=== PATIENT | female | born 1960 | race Caucasian/White ===

== ENCOUNTER → 2024-05-17 | Outpatient (CLI) | payer BC ==
[2024-05-17 17:32] LABS: BASOPHIL % 0.9 % (0.1-1.2); EOSINOPHIL # 0.1 10^3/uL (0.0-0.2); EOSINOPHIL % 1.5 % (0.0-5.0); HEMATOCRIT(ML) 42.8 % (36.0-46.0); HEMOGLOBIN 14.6 g/dL (12.0-15.0); LYMPHOCYTES # 1.32 10^3/uL1 (1.0-4.8); LYMPHOCYTES % 39.8 % (24.0-44.0); MEAN CORP HGB 28.9 pg (26-34); MEAN CORP HGB CONCENTRATION 34.1 g/dL (33-36.5); MEAN CORP VOLUME 84.8 fL (78-100); MONOCYTES # 0.3 10^3/uL (0.3-0.8); MONOCYTES % 9.3 % (5.0-12.0); NEUTROPHIL # 1.6 10^3/uL (1.8-7.7); NEUTROPHILS % 48.5 % (41.0-85.0); PLATELET COUNT 207 10^3/uL (150-400); RED BLOOD CELL 5.05 10^6/uL (4.00-5.20); RED CELL DISTRIBUTION WIDTH 11.4 % (11.5-14.5); WHITE BLOOD CELL 3.3 10^3/uL (4.5-11.0)
[2024-05-17 17:35] LABS: +ADD MANUAL DIFF(NO CHRG) NO
[2024-05-17 17:54] LABS: ALANINE AMINOTRANSFERASE(ML) 18 U/L (12-78); ALBUMIN(ML) 3.5 g/dL (3.4-5.0); ALBUMIN/GLOBULIN RATIO 0.921; ALKALINE PHOSPHATASE 175 U/L (50-136); ANION GAP 13.4; CALCIUM 8.9 mg/dL (8.4-10.5); CARBON DIOXIDE 25.9 mmol/L (20.0-32); CHOLESTEROL 305 mg/dL (120-240); CREATININE SERUM 0.63 mg/dL (0.59-1.40); EST GFR, NON-AA 96.1 (>/=60); HDL CHOLESTEROL 57 mg/dL (32-96); POTASSIUM 4.3 mmol/L (3.6-5.2); SODIUM 134 mmol/L (132-145)
[2024-05-17 18:22] LABS: GLUCOSE 406 mg/dL (74-106)
[2024-05-17 18:36] LABS: ASPARTATE AMINO TRANSFERASE 5 U/L (0-35)
== END | disposition home or self-care (01) ==
LOC: LAB 16:59
PROVIDERS: ATTEND Nurse Practitioner Family
DX: I10 Essential (primary) hypertension (principal); E11.9 Type 2 diabetes mellitus without complications; K58.0 Irritable bowel syndrome with diarrhea
CPT/HCPCS: 36415; 80050; 80061; 83036; 84439